=== PATIENT | female | born 1990 | race Caucasian/White ===

== ENCOUNTER 2016-04-21 02:15 | Emergency (ER) | payer OTHER ==
[~2016-04-21] VITALS: Ht 149.9 cm; Wt 59.1 kg
[2016-04-21 02:23] VITALS: BP 104/74; PULSE 122; RESP 20; O2SAT 100
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
[2016-04-21] MEDS ORDERED: Ondansetron 2 mg/mL 2 mL Inj IVPUSH PRN (02:40)
[2016-04-21] MEDS ORDERED: HYDROmorphone 0.5 mg/0.5 mL iSecure Syringe IVPUSH PRN (02:40)
[2016-04-21 03:02] LABS: BASOPHILS % (AUTO) 0.1 % (0-3); EOSINOPHILS % (AUTO) 0.1 % (0-5); MONOCYTES % (AUTO) 5.4 % (4-12); Mean Corpuscular Hemoglobin 28.2 pg (27.0-35.0); Mean Corpuscular Volume 88.1 fL (81-100); NEUTROPHILS % (AUTO) 90.4 % (40-74); Platelet Count 272 bil/L (150-400)
[2016-04-21 04:00] VITALS: BP 124/64; PULSE 88; RESP 14; O2SAT 96
[2016-04-21] MEDS ORDERED: Peds - CefTRIAXone 40 mg/mL 2,000 MG in Syringe 1 EACH IV ONE (04:10)
[2016-04-21] MEDS ORDERED: Azithromycin Inj 500 MG in Dextrose 5% w/Vial Mate 250 ML IV ONE (04:10)
[2016-04-21] MEDS ORDERED: _HYDROcodone/APAP 5-325 mg Tablet PO PRN (04:15)
[2016-04-21] MEDS ORDERED: cefTRIAXone 2,000 mg/D5W 50 mL IV Minibag Plus IV ONE ×2 (04:15)
[2016-04-21 06:44] VITALS: BP 146/88; PULSE 82; RESP 14; O2SAT 96
--- NOTE | 2016-04-21 08:12 | DRSVH ---
PROCEDURE: CT ANGIO CHEST PULMONARY EMBOLISM ([id number]) INDICATIONS: pleuritic chest pain, tachycardia TECHNIQUE: After the administration of intravenous contrast, 2 mm thick sections acquired from the pulmonary api juanpablo to the posterior costophrenic angles. 3-dimensional maximum intensity projection (MIP) coronal a nd sagittal reformats were then acquired through the thorax. For radiation dose reduction, the follo wing was used: automated exposure control, adjustment of mA and/or kV according to patient size. 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 Pulmonary arteries: Pulmonary arteries are normal in size, and demonstrate no intraluminal filling d efects to suggest central pulmonary embolism. Lungs and pleura: Focal consolidation is present in the posterior basilar segment of the left lower l obe, associated with mild pleural reaction and compatible with pneumonia. No pneumothorax. Central a nd peripheral airways are patent. Mediastinum: Heart size is normal, without pericardial effusion. No mediastinal or hilar adenopathy . Thoracic aorta is normal in caliber and enhancement. Esophagus is normal in caliber, without hiat al hernia. Bones and chest wall: No suspicious bony lesions. Ribs and thoracic spine appear intact throughout. Thyroid gland appears normal. No axillary or supraclavicular adenopathy. Abdomen: Visualized upper abdominal solid organs appear normal in the early arterial phase of enhanc ement. IMPRESSION: 1. Left lower lobe pulmonary consolidation appears consistent with pneumonia. Clinical/laboratory cor relation recommended. 2. Exam is negative for pulmonary embolic disease. Findings are concordant with the preliminary report Dictated by: Abdulaziz Washington M.D. on 04/21/2016 at 8:06 Approved by: Abdulaziz Washington M.D. on 04/21/2016 at 8:11
--- NOTE | 2016-04-21 08:57 | DRSVH ---
PROCEDURE: X-RAY CHEST ONE VIEW, PORTABLE ([id number]) INDICATIONS: chest pain TECHNIQUE: One view of the chest was acquired. COMPARISON: [facility], , CHEST 1VW (PORTABLE), 09/21/2006, 16:13. FINDINGS: Surgical changes and devices: None. Lungs and pleura: No pleural effusions or pneumothorax. Lung volumes are low and air space opacity involves the left lung base. Mediastinum: Mediastinal contours appear normal. Heart size is normal. Bones and chest wall: No suspicious bony lesions. Overlying soft tissues appear unremarkable. IMPRESSION: Left basilar atelectasis versus aspiration or pneumonia. Correlate clinically. Dictated by: Simone ALEXIS Interpreted: Terence Washington MD on 04/21/2016 at 8:56 Transcribed by: MELANIE on 04/21/2016 at 8:57 Approved by: Abdulaziz Washington M.D. on 04/21/2016 at 9:28
== END 2016-04-21 06:40 | disposition home or self-care (01) ==
LOC: SED 02:55
DX: J18.9 Pneumonia, unspecified organism (principal)
CPT/HCPCS: 36415; 71010; 71275; 80053; 84702; 85025; 87804; 93005; 96365; 96367; 96375; 99285; J0456; J0696; J1170; Q9967